=== PATIENT | male | born 1955 | race Caucasian/White ===

== ENCOUNTER → 2017-05-25 | Outpatient (CLI) | payer MEDICARE ==
[~2017-05-25] MED LIST: ASPIRIN81 M1 PO; ATENOLOL50 M1 PO; CARDIZEM LA240 MG PO; DAYPRO600 M1 PO; DULE1ARO1 INH; ELIQUIS5 M1 PO; LISINOPRIL AND1 TA2 PO; MS CONTIN PO; MS CONTIN60 MG PO; PERCOCET 325 MG1 TA7 PO; PROAIR HFA8.5 GM INH; ROBAXIN750 MG PO; SKELAXIN800 MG PO; VICODIN 500 MG-1 TAB PO; XANAX0.5 MG PO; ZESTORETIC 12.51 TA3 PO; ZESTORETIC 20-1 EACH PO; ZITHROMAX Z PA250 MG PO; ZOCOR40 MG PO; ZYRTEC10 M1 PO
--- NOTE | ~2017-05-25 | ST ---
[place], [place] EXERCISE STRESS TEST REPORT NAME: SIMON ELMORE UNIT #: [id number] ROOM: DOCTOR: LORENA LO [facility] BIRTHDATE: [birth year] DOS: 05/25/2017 The patient received Lexiscan 0.4 mg over 10 seconds. Heart rate obtained was 85. No ischemic changes on EKG. The patient has chronic atrial fibrillation. Heart rate response is good. Blood pressure response is good. No complications noted. Isotope was injected. Myocardial perfusion scan to follow. EH CARRILLO MD CM:STRESS:EXERCISE STRESS TEST REPORT [id number] EH CARRILLO MD [facility]
--- NOTE | 2017-05-25 13:30 | NUR ---
INFORMED CONSENT OBTAINED FOR LEXISCAN NUCLEAR STRESS TEST WITH DR. CARRILLO. RESTING EKG ATRIAL FIB WITH A RESTING HR OF 72 WITH BP OF 140/92. LUNGS WITH DIMINISHED BS WITH SPO2 OF 97% ON ROOM AIR. PT COMPLETED A 1:00 LEXISCAN PROTOCOL RECEIVING LEXISCAN 0.4 MG IV OVER 10 SECONDS. HAD NO CHEST PAIN OR ANY EKG CHANGES. DID C/O "WARM FEELING" THAT SUBSIDED IN RECOVERY. HAD A PEAK HR OF 89 WITH BP OF 158/90. LAST RECOVERY HR OF 91 WITH BP OF 138/80. AWAITING SCANNING IN STABLE CONDITION.
== END | disposition home or self-care (01) ==
LOC: CARD 01:57
DX: R07.9 Chest pain, unspecified (principal); R06.02 Shortness of breath; R53.81 Other malaise; R68.84 Jaw pain

== ENCOUNTER → 2018-03-27 | Outpatient (CLI) | payer OTHER ==
[2018-03-27 11:32] LABS: INTERNATIONAL NORM RATIO 3.7 (2.0-3.5)
== END | disposition home or self-care (01) ==
LOC: LAB 10:50
PROVIDERS: Internal Medicine Cardiovascular Disease
DX: I48.0 Paroxysmal atrial fibrillation (principal)

== ENCOUNTER → 2018-04-10 | Outpatient (CLI) | payer OTHER ==
[2018-04-10 12:39] LABS: INTERNATIONAL NORM RATIO 3.3 (2.0-3.5)
== END | disposition home or self-care (01) ==
LOC: LAB 11:31
PROVIDERS: Internal Medicine Cardiovascular Disease
DX: I48.0 Paroxysmal atrial fibrillation (principal)

== ENCOUNTER → 2018-05-08 | Outpatient (CLI) | payer OTHER ==
[2018-05-08 12:46] LABS: INTERNATIONAL NORM RATIO 1.4 (2.0-3.5)
== END | disposition home or self-care (01) ==
LOC: LAB 11:57
PROVIDERS: Internal Medicine Cardiovascular Disease
DX: I48.0 Paroxysmal atrial fibrillation (principal)

== ENCOUNTER → 2018-05-30 | Outpatient (CLI) | payer OTHER ==
[2018-05-30 11:48] LABS: INTERNATIONAL NORM RATIO 2.4 (2.0-3.5)
== END | disposition home or self-care (01) ==
LOC: LAB 10:30
PROVIDERS: Internal Medicine Cardiovascular Disease
DX: I48.0 Paroxysmal atrial fibrillation (principal)

== ENCOUNTER → 2018-10-01 | Outpatient (CLI) | payer OTHER ==
[~2018-10-01] MED LIST changes: +CLARITIN10 MG PO; +FLONASE ALLERG9.9 ML NAS; +PREDNISONE10 MG PO
== END | disposition home or self-care (01) ==
LOC: CARD 09-18 12:00
DX: I11.9 Hypertensive heart disease without heart failure (principal); I48.2 Chronic atrial fibrillation

== ENCOUNTER → 2019-01-11 | Outpatient (CLI) | payer OTHER | END | disposition home or self-care (01) | LOC: RAD 10:13 | DX: M25.551 Pain in right hip (principal); M25.552 Pain in left hip; M54.5 Low back pain ==

== ENCOUNTER → 2019-09-09 | Outpatient (CLI) | payer OTHER ==
[2019-09-09 09:15] LABS: HEMATOCRIT 53.4 % (42.0-52.0); HEMOGLOBIN 17.8 g/dl (14.0-18.0); MEAN CELL VOLUME 94.7 fl (80.0-94.0); MEAN CORPUSCULAR HGB 31.6 pg (27.0-31.0); MEAN CORPUSCULAR HGB CONC 33.3 g/dl (33.0-37.0); MEAN PLATELET VOLUME 9.8 fl (9.6-12.3); RED BLOOD COUNT 5.64 10*6/uL (4.50-5.90); RED CELL DISTRI WIDTH 13.4 % (0-14.5)
[2019-09-09 09:48] LABS: ALBUMIN 3.3 gm/dl (3.1-4.5); ALKALINE PHOSPHATASE 54 U/L (45-117); BUN 10 mg/dl (7-24); CHLORIDE 96 mmol/L (98-107); CHOLESTEROL 159 mg/dL (<200); CREATININE 0.78 mg/dL (0.70-1.30); HDL CHOLESTEROL 68 mg/dl (40-60); IRON 100 ug/dL (65-175); LDL CHOLESTEROL 75 mg/dL (9-159); POTASSIUM 3.2 mmol/L (3.5-5.1); SGOT/AST 21 IU/L (3-35); SGPT/ALT 38 U/L (12-78); SODIUM 135 mmol/L (136-145); TOTAL PROTEIN 7.7 gm/dL (6.4-8.2); TRIGLYCERIDES 80 mg/dl (<150); VLDL CHOLESTEROL 16 mg/dL (6-40)
[2019-09-09 10:21] LABS: VITAMIN D, 25-HYDROXY 14.1 ng/mL (30-100)
== END | disposition home or self-care (01) ==
LOC: LAB 08:06
PROVIDERS: Registered Nurse Flight
DX: Z12.5 Encounter for screening for malignant neoplasm of prostate (principal); R53.82 Chronic fatigue, unspecified; E55.9 Vitamin D deficiency, unspecified; Z79.899 Other long term (current) drug therapy; I48.0 Paroxysmal atrial fibrillation

== ENCOUNTER → 2019-09-16 | Outpatient (CLI) | payer OTHER | END | disposition home or self-care (01) | LOC: RAD 11:45 | DX: J44.1 Chronic obstructive pulmonary disease with (acute) exacerbation (principal); J44.9 Chronic obstructive pulmonary disease, unspecified ==

== ENCOUNTER 2022-01-09 22:37 | Inpatient (IN) | payer OTHER ==
[~2022-01-09] VITALS: Ht 180.3 cm; Wt 77.3 kg
[2022-01-09 22:40] VITALS: BP 161/117
[2022-01-09 23:07] LABS: BASO % 0.6 % (0.0-1.0); HEMATOCRIT 48.5 % (42.0-52.0); LYMPH # 0.4 10*3/uL (1.3-4.4); MEAN CELL VOLUME 93.6 fl (80.0-94.0); MEAN CORPUSCULAR HGB 32.4 pg (27.0-31.0); MEAN CORPUSCULAR HGB CONC 34.6 g/dl (33.0-37.0); MEAN PLATELET VOLUME 10.2 fl (9.6-12.3); MONO # 0.5 10*3/uL (0.1-1.0); MONO % 10.1 % (3.0-9.0); NEUT # 4.2 10*3/uL (2.3-7.9); NEUT % 81.7 % (47.0-73.0); PLATELET COUNT AUTOMATED 84 10*3/uL (130-400); RED BLOOD COUNT 5.18 10*6/uL (4.50-5.90); RED CELL DISTRI WIDTH 13.5 % (0-14.5); WHITE BLOOD COUNT 5.2 10*3/uL (4.8-10.8)
[2022-01-09 23:25] LABS: ALKALINE PHOSPHATASE 56 U/L (45-117); BUN 10 mg/dl (7-24); CHLORIDE 91 mmol/L (98-107); POTASSIUM 4.1 mmol/L (3.5-5.1); SGOT/AST 24 IU/L (3-35); SGPT/ALT 27 U/L (12-78); SODIUM 127 mmol/L (136-145); TOTAL PROTEIN 7.3 gm/dL (6.4-8.2)
[2022-01-09 23:59] VITALS: BP 156/83
[2022-01-10] VITALS (11 sets, daily range): BP systolic 133–167; BP diastolic 66–110
[2022-01-10] MEDS ORDERED: LISINOPRIL40 MG PO (05:06)
[2022-01-10] MEDS ORDERED: WARFARIN SOD5 MG PO (05:08)
[2022-01-10 06:18] LABS: BASO % 0.3 % (0.0-1.0); HEMATOCRIT 48.5 % (42.0-52.0); LYMPH # 0.2 10*3/uL (1.3-4.4); LYMPH % 6.6 % (27.0-41.0); MEAN CELL VOLUME 93.1 fl (80.0-94.0); MEAN CORPUSCULAR HGB 31.7 pg (27.0-31.0); MEAN PLATELET VOLUME 10.4 fl (9.6-12.3); MONO # 0.1 10*3/uL (0.1-1.0); MONO % 4.1 % (3.0-9.0); NEUT # 2.6 10*3/uL (2.3-7.9); NEUT % 88.3 % (47.0-73.0); PLATELET COUNT AUTOMATED 73 10*3/uL (130-400); RED BLOOD COUNT 5.21 10*6/uL (4.50-5.90); RED CELL DISTRI WIDTH 13.5 % (0-14.5); WHITE BLOOD COUNT 2.9 10*3/uL (4.8-10.8)
[2022-01-10 06:27] LABS: ACT PARTIAL THROMBO TIME 41.3 SECONDS (20.0-32.1); INTERNATIONAL NORM RATIO 1.8 (2.0-3.5)
[2022-01-10 06:31] LABS: ALKALINE PHOSPHATASE 51 U/L (45-117); BUN 10 mg/dl (7-24); CHLORIDE 94 mmol/L (98-107); CHOLESTEROL 156 mg/dL (<200); CREATININE 0.76 mg/dL (0.70-1.30); FREE T4 1.07 ng/dl (0.76-1.46); LDL CHOLESTEROL 20 mg/dL (9-159); POTASSIUM 4.3 mmol/L (3.5-5.1); SGOT/AST 23 IU/L (3-35); SGPT/ALT 24 U/L (12-78); SODIUM 130 mmol/L (136-145); TOTAL PROTEIN 7.1 gm/dL (6.4-8.2); TRIGLYCERIDES 56 mg/dl (<150)
[2022-01-10 06:35] LABS: THYROID STIM HORMONE (HS) 0.161 uIU/ml (0.358-4.75)
[2022-01-10] MEDS ORDERED: LYRICA100 M1 PO (08:27)
[2022-01-10] MEDS ORDERED: DIGOX125 MCG PO (08:28)
[2022-01-10 19:56] LABS: ARTERIAL BLOOD GAS PH 7.37 (7.35-7.45); ARTERIAL BLOOD GAS PO2 66.4 (80-90)
[2022-01-11] VITALS (11 sets, daily range): BP systolic 102–162; BP diastolic 65–87
[2022-01-11 05:37] LABS: BUN 14 mg/dl (7-24); CHLORIDE 97 mmol/L (98-107); CREATININE 0.76 mg/dL (0.70-1.30); SODIUM 132 mmol/L (136-145)
[2022-01-11 06:16] LABS: INTERNATIONAL NORM RATIO 1.6 (2.0-3.5)
[2022-01-11 06:19] LABS: HEMATOCRIT 46.6 % (42.0-52.0); MEAN CELL VOLUME 94.9 fl (80.0-94.0); MEAN CORPUSCULAR HGB 31.8 pg (27.0-31.0); MEAN CORPUSCULAR HGB CONC 33.5 g/dl (33.0-37.0); MEAN PLATELET VOLUME 10.9 fl (9.6-12.3); PLATELET COUNT AUTOMATED 72 10*3/uL (130-400); RED BLOOD COUNT 4.91 10*6/uL (4.50-5.90); RED CELL DISTRI WIDTH 13.6 % (0-14.5); WHITE BLOOD COUNT 9.6 10*3/uL (4.8-10.8)
[2022-01-11 06:24] LABS: MANUAL DIFF REFLEX YES
[2022-01-11 06:52] LABS: BURR CELLS FEW; PLATELET SUFFICIENCY LOW (NORMAL); ROULEAUX SLIGHT; TOTAL CELLS COUNTED 100 #CELLS
[2022-01-12] VITALS (12 sets, daily range): BP systolic 114–138; BP diastolic 58–89
[2022-01-12 05:56] LABS: BUN 22 mg/dl (7-24); CHLORIDE 93 mmol/L (98-107); CREATININE 0.74 mg/dL (0.70-1.30); POTASSIUM 4.5 mmol/L (3.5-5.1); SODIUM 129 mmol/L (136-145)
[2022-01-12 06:07] LABS: HEMATOCRIT 46.3 % (42.0-52.0); MEAN CELL VOLUME 96.5 fl (80.0-94.0); MEAN CORPUSCULAR HGB 32.1 pg (27.0-31.0); MEAN CORPUSCULAR HGB CONC 33.3 g/dl (33.0-37.0); MEAN PLATELET VOLUME 10.7 fl (9.6-12.3); PLATELET COUNT AUTOMATED 80 10*3/uL (130-400); RED CELL DISTRI WIDTH 13.5 % (0-14.5)
[2022-01-12 06:37] LABS: INTERNATIONAL NORM RATIO 1.9 (2.0-3.5)
[2022-01-12 07:27] LABS: MANUAL DIFF REFLEX YES
[2022-01-12 07:31] LABS: BASOPHILS 1 % (0-1); PLATELET SUFFICIENCY LOW (NORMAL); TOTAL CELLS COUNTED 100 #CELLS
[2022-01-12 14:07] LABS: ACID FAST SPEC PROCESSING Concentration (.)
[2022-01-13] VITALS (9 sets, daily range): BP systolic 117–145; BP diastolic 73–99
[2022-01-13 06:10] LABS: HEMATOCRIT 43.6 % (42.0-52.0); MEAN CORPUSCULAR HGB 31.4 pg (27.0-31.0); MEAN PLATELET VOLUME 11.2 fl (9.6-12.3); PLATELET COUNT AUTOMATED 82 10*3/uL (130-400); RED BLOOD COUNT 4.59 10*6/uL (4.50-5.90); RED CELL DISTRI WIDTH 13.3 % (0-14.5); WHITE BLOOD COUNT 7.6 10*3/uL (4.8-10.8)
[2022-01-13 06:14] LABS: BUN 21 mg/dl (7-24); CHLORIDE 97 mmol/L (98-107); CREATININE 0.63 mg/dL (0.70-1.30); POTASSIUM 4.7 mmol/L (3.5-5.1); SODIUM 132 mmol/L (136-145)
[2022-01-13 06:25] LABS: MANUAL DIFF REFLEX YES
[2022-01-13 06:28] LABS: INTERNATIONAL NORM RATIO 2.3 (2.0-3.5)
[2022-01-13 06:47] LABS: TOTAL CELLS COUNTED 100 #CELLS
[2022-01-13 06:48] LABS: PLATELET SUFFICIENCY LOW (NORMAL)
[2022-01-13 10:07] LABS: ACID FAST SPEC PROCESSING Concentration (.)
[2022-01-13 18:06] LABS: TB1 Ag VALUE 0.02 IU/mL (.)
[2022-01-14] VITALS: BP 127/66
[2022-01-14 06:04] LABS: BUN 16 mg/dl (7-24); CHLORIDE 97 mmol/L (98-107); CREATININE 0.55 mg/dL (0.70-1.30); POTASSIUM 4.1 mmol/L (3.5-5.1); SODIUM 134 mmol/L (136-145)
[2022-01-14 06:10] LABS: BASO % 0.1 % (0.0-1.0); HEMATOCRIT 46.2 % (42.0-52.0); LYMPH # 0.3 10*3/uL (1.3-4.4); LYMPH % 4.1 % (27.0-41.0); MEAN CELL VOLUME 94.9 fl (80.0-94.0); MEAN CORPUSCULAR HGB 32.4 pg (27.0-31.0); MEAN CORPUSCULAR HGB CONC 34.2 g/dl (33.0-37.0); MEAN PLATELET VOLUME 11.3 fl (9.6-12.3); MONO # 0.5 10*3/uL (0.1-1.0); MONO % 6.8 % (3.0-9.0); NEUT # 6.3 10*3/uL (2.3-7.9); NEUT % 88.6 % (47.0-73.0); PLATELET COUNT AUTOMATED 94 10*3/uL (130-400); RED BLOOD COUNT 4.87 10*6/uL (4.50-5.90); RED CELL DISTRI WIDTH 13.3 % (0-14.5); WHITE BLOOD COUNT 7.1 10*3/uL (4.8-10.8)
[2022-01-14 08:00] VITALS: BP 157/80
[2022-01-14 12:00] VITALS: BP 158/74
[2022-01-14 14:08] LABS: ACID FAST SPEC PROCESSING Concentration (.)
[2022-01-14] MEDS ORDERED: WARFARIN SOD5 MG PO (14:16)
[2022-01-14] MEDS ORDERED: Coumadin7.5 MG PO (14:16)
[2022-01-14] MEDS ORDERED: MUCINEX ER600 MG PO (14:16)
[2022-01-14] MEDS ORDERED: LEVOFLOXACIN750 M2 PO (14:16)
[2022-01-14] MEDS ORDERED: PREDNISONE10 MG PO (14:16)
[2022-01-14] MEDS ORDERED: DILTIAZEM HCL60 MG PO (14:16)
== END 2022-01-14 14:45 | disposition home or self-care (01) | DRG 871 ==
LOC: ED 22:37 → 4E 01-10 01:58 → EDHOLD 01-10 01:58 → 4E 01-10 03:49
PROVIDERS: Internal Medicine; Internal Medicine Critical Care Medicine; Student in an Organized Health Care Education/Training Program; ADMIT Emergency Medicine; ATTEND Emergency Medicine
DX: A41.9 Sepsis, unspecified organism (principal); J96.01 Acute respiratory failure with hypoxia; J96.02 Acute respiratory failure with hypercapnia; J18.9 Pneumonia, unspecified organism; E87.1 Hypo-osmolality and hyponatremia; J44.0 Chronic obstructive pulmonary disease with (acute) lower respiratory infection; E87.8 Other disorders of electrolyte and fluid balance, not elsewhere classified; I48.91 Unspecified atrial fibrillation; I10 Essential (primary) hypertension; E80.6 Other disorders of bilirubin metabolism; Z66 Do not resuscitate; R73.9 Hyperglycemia, unspecified; R65.20 Severe sepsis without septic shock; D72.819 Decreased white blood cell count, unspecified; D69.6 Thrombocytopenia, unspecified; Z68.23 Body mass index [BMI] 23.0-23.9, adult; Z88.8 Allergy status to other drugs, medicaments and biological substances; Z51.5 Encounter for palliative care; Z82.3 Family history of stroke; Z82.49 Family history of ischemic heart disease and other diseases of the circulatory system

== ENCOUNTER → 2022-07-19 | Outpatient (CLI) | payer MEDICARE ==
[~2022-07-19] MED LIST changes: +ALDACTONE25 MG PO; +AMIODARONE HYD200 MG NG; +ASPIRIN CHILDRE81 MG NG; +ATORVASTATIN CA80 M1 PO; +CYCLOBENZAPRINE10 MG PO; +Coumadin7.5 MG PO; +DIGOX125 MCG PO; +DILTIAZEM HCL60 MG PO; +ENTRESTO 97 MG1 EACH PO; +LEVOFLOXACIN750 M2 PO; +LISINOPRIL40 MG PO; +LYRICA100 M1 PO; +METOPROLOL SUC100 M1 PO; +MUCINEX ER600 MG PO; +VANCOMYCIN HCL125 MG PO; +WARFARIN SOD5 MG PO; +XARE20MG PO
== END | disposition home or self-care (01) ==
LOC: RESCLI 14:29
PROVIDERS: ATTEND Internal Medicine
DX: I50.20 Unspecified systolic (congestive) heart failure (principal); I48.91 Unspecified atrial fibrillation; G62.9 Polyneuropathy, unspecified; N40.0 Benign prostatic hyperplasia without lower urinary tract symptoms; J44.9 Chronic obstructive pulmonary disease, unspecified; M54.9 Dorsalgia, unspecified; E78.5 Hyperlipidemia, unspecified; Z91.030 Bee allergy status; F17.200 Nicotine dependence, unspecified, uncomplicated; Z72.89 Other problems related to lifestyle; Z82.49 Family history of ischemic heart disease and other diseases of the circulatory system; Z98.890 Other specified postprocedural states; Z79.01 Long term (current) use of anticoagulants; Z79.82 Long term (current) use of aspirin; Z79.899 Other long term (current) drug therapy

== ENCOUNTER → 2023-02-01 | Outpatient (CLI) | payer MEDICARE | END | disposition home or self-care (01) | LOC: LAB 10:07 | PROVIDERS: ATTEND Nurse Practitioner | DX: R10.9 Unspecified abdominal pain (principal) ==

== ENCOUNTER → 2023-02-16 | Day surgery (SDC) | payer MEDICARE ==
[~2023-02-16] VITALS: Ht 180.3 cm; Wt 88.5 kg
[~2023-02-16] MED LIST changes: +FUROSEMIDE40 MG PO; +MELOXICAM7.5 MG PO; +OSTERA TABLET1 EACH PO; +PROVENTIL HFA6.7 GM INH; +TAMSULOSIN HCL0.4 MG PO; +VALSARTAN40 MG PO
[2023-02-16 07:41] VITALS: BP 149/74
[2023-02-16 08:38] VITALS: BP 120/50
[2023-02-16 08:53] VITALS: BP 121/59
[2023-02-16 09:04] VITALS: BP 149/71
== END | disposition home or self-care (01) ==
LOC: SDC 02-13 09:30
PROVIDERS: ATTEND Surgery
DX: Z12.11 Encounter for screening for malignant neoplasm of colon (principal); K57.30 Diverticulosis of large intestine without perforation or abscess without bleeding; I10 Essential (primary) hypertension; I25.10 Atherosclerotic heart disease of native coronary artery without angina pectoris; I48.91 Unspecified atrial fibrillation; I25.2 Old myocardial infarction; J43.9 Emphysema, unspecified; Z86.010 Personal history of colon polyps; F17.210 Nicotine dependence, cigarettes, uncomplicated; Z79.899 Other long term (current) drug therapy
CPT/HCPCS: 00812; G0105

== ENCOUNTER → 2023-08-03 | Outpatient (CLI) | payer MEDICARE | LOC: RESCLI 01:21 | PROVIDERS: ATTEND Family Medicine | DX: J44.1 Chronic obstructive pulmonary disease with (acute) exacerbation (principal); I50.20 Unspecified systolic (congestive) heart failure; G62.9 Polyneuropathy, unspecified; N40.0 Benign prostatic hyperplasia without lower urinary tract symptoms; M54.9 Dorsalgia, unspecified; J44.9 Chronic obstructive pulmonary disease, unspecified; M15.9 Polyosteoarthritis, unspecified; E55.9 Vitamin D deficiency, unspecified; I48.91 Unspecified atrial fibrillation; E78.5 Hyperlipidemia, unspecified; Z79.899 Other long term (current) drug therapy; Z79.82 Long term (current) use of aspirin ==

== ENCOUNTER → 2024-02-28 | Outpatient (CLI) | payer MEDICARE | END | disposition home or self-care (01) | LOC: US 01:07 | PROVIDERS: ATTEND Internal Medicine | DX: R59.1 Generalized enlarged lymph nodes (principal) ==

== ENCOUNTER → 2024-03-04 | Outpatient (CLI) | payer MEDICARE ==
[2024-03-05 05:07] LABS: HBSAG Negative (Negative); HEP B CORE AB, IGM Negative (Negative); HEPATITIS C ANTIBODY Non Reactive (Non Reactive)
== END | disposition home or self-care (01) ==
LOC: LAB 11:54
PROVIDERS: ATTEND Internal Medicine
DX: J44.9 Chronic obstructive pulmonary disease, unspecified (principal); I50.20 Unspecified systolic (congestive) heart failure; M54.9 Dorsalgia, unspecified; Z79.631 Long term (current) use of antimetabolite agent; L40.9 Psoriasis, unspecified; G62.9 Polyneuropathy, unspecified; I48.91 Unspecified atrial fibrillation; M15.9 Polyosteoarthritis, unspecified; N40.0 Benign prostatic hyperplasia without lower urinary tract symptoms; I73.9 Peripheral vascular disease, unspecified; E78.5 Hyperlipidemia, unspecified; Z79.899 Other long term (current) drug therapy

== ENCOUNTER → 2024-04-17 | Outpatient (CLI) | payer MEDICARE ==
[~2024-04-17] MED LIST changes: +IOHEXOL 300 MG/ML 100 ML VIAL IV ONE
== END | disposition home or self-care (01) ==
LOC: CT 13:56
PROVIDERS: ATTEND Internal Medicine Critical Care Medicine
DX: Z01.818 Encounter for other preprocedural examination (principal); R59.0 Localized enlarged lymph nodes; J90 Pleural effusion, not elsewhere classified; I25.10 Atherosclerotic heart disease of native coronary artery without angina pectoris; I71.9 Aortic aneurysm of unspecified site, without rupture; J98.11 Atelectasis; K80.20 Calculus of gallbladder without cholecystitis without obstruction; N28.1 Cyst of kidney, acquired; D35.01 Benign neoplasm of right adrenal gland

== ENCOUNTER → 2024-07-29 | Outpatient (CLI) | payer MEDICARE ==
[~2024-07-29] MED LIST changes: -IOHEXOL 300 MG/ML 100 ML VIAL IV ONE
== END | disposition home or self-care (01) ==
LOC: RESCLI 02:13
PROVIDERS: ATTEND Family Medicine
DX: J44.9 Chronic obstructive pulmonary disease, unspecified (principal); R26.2 Difficulty in walking, not elsewhere classified; I50.20 Unspecified systolic (congestive) heart failure; N40.0 Benign prostatic hyperplasia without lower urinary tract symptoms; E78.5 Hyperlipidemia, unspecified; M54.9 Dorsalgia, unspecified; I48.91 Unspecified atrial fibrillation; G62.9 Polyneuropathy, unspecified; L40.9 Psoriasis, unspecified; E55.9 Vitamin D deficiency, unspecified; M15.9 Polyosteoarthritis, unspecified; Z98.890 Other specified postprocedural states; Z88.8 Allergy status to other drugs, medicaments and biological substances; F17.210 Nicotine dependence, cigarettes, uncomplicated; Z79.899 Other long term (current) drug therapy